=== PATIENT | female | born 1970 | race Caucasian/White ===

== ENCOUNTER 2016-12-10 10:02 | Emergency (ER) | payer MEDICAID ==
--- NOTE | 2016-12-10 11:05 | ED Physician Chart ---
Chief Complaint/HPI - Patient Information Date Seen:: 12/10/16 Time Seen:: 10:50 Allergies:: Allergies Allergy/AdvReac Type Severity Reaction Status Date / Time Penicillins [PCN] Allergy Verified 12/10/16 10:47 Vitals:: Vital Signs - 8 hr 12/10/16 10:22 Temp 98.2 F HR 85 RR 16 O2 Sat % 97 Historian:: Patient Review:: Nurse's Note Reviewed Review of Systems - Review of Systems General/Constitutional: No fever, No chills Skin: No skin lesions Head: No headache Eyes: Acuity change ENT: No earache Neck: No neck pain Cardio Vascular: No chest pain Pulmonary: No SOB GI: No nausea, No vomiting, Pain G/U: Dysuria Musculoskeletal: No bone or joint pain Endocrine: No polyuria, No polydipsia Psychiatric: No prior psych history, No depression Hematopoietic: No bruising Allergic/Immuno: No urticaria Neurological: No syncope Past Medical History - Past Medical History Past Medical History: No significant medical hx Family History: Heart disease, Diabetes Melitus Social History: Non Smoker Surgical History: Psychiatricy History: None Medication: None Family Medical History - Family Member Mother Ethnicity: Non- Living Status: Still Living Hx Family Cancer: No Hx Family Coronary Artery Disease: Yes Hx Family Congestive Heart Failure: No Hx Family Hypertension: No Hx Family Stroke: No Hx Family Diabetes: Yes Hx Family Seizures: No Hx Family Dementia: No Hx Family AIDS: No Hx Family HIV: No Hx Family COPD: No Hx Family Hepatitis: No Hx Family Psychiatric Problems: No Hx Family Tuberculosis: No Physical Exam - Physical Examination General/Constitutional: Well-developed, well-nourished, Alert, No distress Head: Atraumatic Eyes: Lids, conjuctiva normal, PERRL Skin: Nl inspection, No rash, No skin lesions, No ecchymosis ENMT: External ears, nose nl Neck: No nuchal rigidity Respiratory: Nl effort/Exclusion, Clear to Auscultation, No Wheeze/Rhonchi/Rales Cardio Vascular: RRR GI: No organomegaly, No hernia, Normal BS's Other GI comments:: RLQ tenderness about 2 cm inferior to McBurney's point : No CVA tenderness Extremities: No tenderness or effusion, Full ROM Neuro/Psych: Alert/oriented, No focal deficits Misc: Normal back Labs/Radiology/EKG Results - Lab Results Results: Laboratory Results - last 24 hr 12/10/16 12/10/16 10:48 10:59 Urine Source MIDSTREAM Urine Color YELLOW Urine Clarity SL. CLOUDY Urine pH 7.0 Ur Specific [place] 1.020 Urine Protein NEGATIVE Urine Glucose (UA) NEGATIVE Urine Ketones NEGATIVE Urine Blood NEGATIVE Urine Nitrate POSITIVE H Urine Bilirubin NEGATIVE Urine Urobilinogen 0.2 Ur Leukocyte Esterase TRACE H Urine RBC 0-1 Urine WBC 6-10 H Ur Epithelial Cells MODERATE Urine Bacteria OCCASIONAL Urine Test NEGATIVE - Radiology Results Results: Pelvic ultrasound negative Assessment - Assessment General Assessment: patient did not want pelvic exam but agreed to pelvic ultrasound. UA does not suggest a UTI. Patient initially requested Rx Cipro but I was reluctant to prescribe it because of possible severe sequelae like tendon rupture. Patient and I agreed that Macrobid was a better choice. ED Septic Shock - . Is Septic Shock (SBP<90, OR Lactate>4 mmol\L) present?: No - <6hrs of presentation: Vital Signs: Vital Signs - 8 hr 12/10/16 10:22 Temp 98.2 F HR 85 RR 16 O2 Sat % 97 Reassessment (Disposition) - Reassessment Reassessment Condition:: Unchanged - Diagnosis Diagnosis:: urethral syndrome - Aftercare/Follow up Instructions Aftercare/Follow-Up Instructions:: Refer to Discharge Instructions Medication Prescribed:: Macrobid 100 mg BID for one week. - Patient Disposition Discharge/Transfer:: Home Condition at Disposition:: Stable, Unchanged ED Discharge Plan - Patient Disposition Prescriptions: Nitrofurantoin Monohyd/M-Cryst [Macrobid 100 mg Capsule] 100 mg PO BID #0 capsule Instructions: Abdominal Pain, Women Accepting Physician: Thalia Osman [Other] - 1-3 Days
[2016-12-10 11:09] LABS: URINE BILIRUBIN NEGATIVE (NEGATIVE); URINE BLOOD NEGATIVE (NEGATIVE); URINE COLOR YELLOW; URINE GLUCOSE (UA) NEGATIVE (NEGATIVE); URINE KETONE NEGATIVE (NEGATIVE); URINE PROTEIN NEGATIVE (NEGATIVE); URINE UROBILINOGEN 0.2 E.U./dL (0.2 - 1.0)
[2016-12-10 11:12] LABS: URINE BACTERIA OCCASIONAL /hpf (NONE SEEN); URINE EPITHELIAL CELLS MODERATE /lpf (FEW); URINE RBC 0-1 /hpf (0-5)
--- NOTE | 2016-12-10 13:36 | Diagnostic Imaging Report ---
Ultrasound pelvis HISTORY: female right lower quadrant with right lower quadrant pain. LMP is 11/17/2016 COMPARISON: None Technique: Longitudinal and transverse sonographic sector images of the pelvis were obtained transabdominally only. Patient refused transvaginal images. The uterus measures 12.3 x 5.3 x 6.4 cm. The endometrium measures 1 cm. The right ovary measures 2.6 x 2.2 cm. The left ovary measures 2.8 x 2.2 cm. The appendix was not visualized. No free fluid identified. IMPRESSION: The appendix was not visualized. If there is clinical concern for acute appendicitis, CT examination is recommended for further assessment. The endometrium measures 1 cm, please correlate with menstrual cycle patent. No evidence of free fluid in the pelvis.
== END 2016-12-10 13:50 | disposition home or self-care (01) ==
LOC: ER 10:02
DX: N34.3 Urethral syndrome, unspecified (principal); Z88.0 Allergy status to penicillin
CPT/HCPCS: 76856-TC; 81001-TC; 81025-TC